=== PATIENT | female | born 1960 | race Caucasian/White ===

== ENCOUNTER 2021-09-01 13:45 | Emergency (ER) | payer MEDICAID ==
[~2021-09-01] VITALS: Ht 167.6 cm; Wt 49.9 kg
[2021-09-01 14:08] VITALS: BP_SYST 109
[2021-09-01] MEDS ORDERED: LIDOCAINE 1%, 20 ML MDV 20 ML ONE (14:18)
[2021-09-01] MEDS ORDERED: DIPH-TET-PERTUS Vaccine 0.5 ML VIAL (ADACEL) I.M. ONE (14:30)
[2021-09-01] MEDS ORDERED: LIDOCAINE 1% 10 MG/ML, 20 ML MDV INJ ONE (14:30)
[2021-09-01] MEDS ORDERED: BACITRACIN 1 GM OINT TP ONE (14:30)
[2021-09-01] MEDS ORDERED: MORPHINE 4 MG INJ. 4 MG/ML VIAL IVP ONE (14:30)
[2021-09-01] MEDS ORDERED: LIDOCAINE/EPI 1% 1:100000 20 ML VIAL INJ ONE (14:30)
[2021-09-01] MEDS ORDERED: HYDROmorphone 1 MG/ML INJ. CARTRIDGE ONE ×2 (14:48→14:57)
[2021-09-01 15:33] LABS: HEMATOCRIT 24.9 % (36-48); HEMOGLOBIN 8.3 g/dL (12.0-16.0); MEAN CORPUSCULAR HEMOGLOBIN 29 pg (27-31); MEAN CORPUSCULAR HGB CONC 33 % (32-36); MEAN CORPUSCULAR VOLUME 88 fL (79.0-98.0); RED BLOOD CELL COUNT(AUTO) 2.84 MIL/uL (4.2-6.2); RED CELL DISTRIBUTION WIDTH 20.6 % (9.0-15.0); WHITE BLOOD COUNT (AUTO) 4.4 K/uL (4.8-10.8)
[2021-09-01 15:40] LABS: CALCIUM 10.7 mg/dL (8.4-11.0); CREATININE 0.36 mg/dL (0.55-1.30); POTASSIUM 4.4 mmol/L (3.5-5.1)
[2021-09-01 15:45] LABS: ALBUMIN 2.6 g/dL (3.4-4.8); TOTAL BILIRUBIN 1.5 mg/dL (0.0-1.0)
[2021-09-01] MEDS ORDERED: HYDROmorphone 1 MG/ML INJ. CARTRIDGE IM ONE ×2 (15:45)
[2021-09-01 15:46] LABS: PLATELET COUNT (AUTO) 85 K/uL (130-430)
[2021-09-01 15:48] LABS: BAND % (MANUAL) 4 % (0-6)
[2021-09-01 15:49] LABS: BASOPHILS % (MANUAL) 0 % (0-2); EOSINOPHILS % (MANUAL) 0 % (0-7); LYMPHOCYTES % (MANUAL) 10 % (20-46); METAMYELOCYTES % 1 % (0-0); MONOCYTES % (MANUAL) 7 % (0-11)
[2021-09-01 16:00] LABS: C-REACTIVE PROTEIN QUANT 20.1 mg/dL (0-0.5)
[2021-09-01 20:22] VITALS: BP_SYST 114
== END 2021-09-01 20:22 | disposition home or self-care (01) ==
LOC: SED 13:45
DX: L53.8 Other specified erythematous conditions (principal); L02.414 Cutaneous abscess of left upper limb; Z85.3 Personal history of malignant neoplasm of breast
CPT/HCPCS: 10060; 36415; 80053; 83605; 85007; 85027; 86140; 87040; 90471; 90715; 96372; 96374; 99284; J1170; J2001; J2270